=== PATIENT | female | born 1940 | race Caucasian/White ===

== ENCOUNTER 2018-03-18 11:05 | Outpatient (CLI) | payer MEDICARE, OTHER ==
[~2018-03-18] VITALS: Ht 154.9 cm; Wt 54.9 kg
[2018-03-18 11:40] VITALS: BP 124/58
[2018-03-18] MEDS ORDERED: FISH OIL 500 M1 EAC4 PO (15:19)
[2018-03-18] MEDS ORDERED: FOLIC ACID1 MG ORAL (15:19)
[2018-03-18] MEDS ORDERED: CALCIUM 600 +1 EAC2 PO (15:19)
[2018-03-18] MEDS ORDERED: ZANTAC150 MG ORAL (15:19)
[2018-03-18] MEDS ORDERED: VITAMIN D22000 UNIT PO (15:19)
[2018-03-18] MEDS ORDERED: PRESERVISION A1 EAC2 PO (15:19)
--- NOTE | 2018-03-18 16:22 | GI Initial Consult Note ---
History of Present Illness General Date patient seen: Mar 18, 2018 Time patient seen: 16:16 Reason for Consultation: ABDOMINAL PAIN Present Illness HPI 77 year old female patient that presents today with complaint of abdominal pain and constipation. Per patient, she has a history of PUD. States her last colonoscopy was performed at the age of 60. Denies any N/V/D. Denies any unintentional weight loss or changes in dietary habits. No signs of abuse or neglect. Patient is not fall risk. Home Meds Reported Medications [place] Oil/[place]-3 Fatty Acids (Fish Oil 500 mg Softgel) 1 Each Capsule, 1 EACH PO DAILY, CAP 03/18/18 Calcium Carbonate/Vitamin D3 (CALCIUM 600 + VIT D 200 TABLET) 1 Each Tablet, 1 EACH PO DAILY, TAB 03/18/18 Ergocalciferol (Vitamin D2) (VITAMIN D2) 2,000 Unit Tablet, 2000 UNIT PO DAILY, TAB 03/18/18 Ranitidine Hcl* (ZANTAC*) 150 Mg Tablet, 300 MG ORAL DAILY, #30 TAB 0 Refills 03/18/18 Folic Acid* (FOLIC ACID*) 1 Mg Tablet, 1 MG ORAL DAILY, TAB 03/18/18 Vit C/E/Zn/Coppr/Lutein/Zeaxan (Preservision Areds 2 Softgel) 1 Each Capsule, 2 EACH PO, CAP 03/18/18 Med list reviewed/reconciled: Yes Allergies: Coded Allergies: ASPIRIN (Verified Adverse Reaction, Unknown, 03/18/18) stomach upset Patient History History Provided By: Patient, Medical Record PMH Narrative Cholelithiasis PUD colonic polyps Past Surgical History: cholecystectomy Hysterectomy Rt TKR Family History Narrative Father >> gastric ulcer Aunt >> colon cA Social History: Reports: other - tea Review of Systems All Other Systems: negative except mentioned in HPI Physical Exam Vital Signs Date Time Temp Pulse Resp B/P (MAP) Pulse Ox O2 Delivery O2 Flow Rate FiO2 03/18/18 11:40 97.9 67 16 124/58 95 97.9 Sp02 EP Interpretation: reviewed, normal General Appearance: well appearing, no apparent distress, alert Head: normocephalic EENT: PERRL/EOMI, normal ENT inspection Neck: supple Respiratory: normal breath sounds, no respiratory distress Cardiovascular: normal rate Gastrointestinal: normal inspection, non tender, soft, normal bowel sounds, non -distended Rectal: deferred Genitourinary: no CVA tenderness Musculoskeletal: normal inspection, back normal Neurologic: normal inspection, alert, oriented x3, responsive Psychiatric: normal inspection, judgement/insight normal, memory normal Skin: normal inspection, normal color, no rash, warm/dry, palpation normal, well hydrated Lymphatic: normal inspection, no adenopathy GI: Plan Problems: (1) Constipation (2) Abdominal pain (3) PUD (peptic ulcer disease) (4) Colonic polyp (5) Colonoscopy planned Plan EGD/colonoscopy scheduled for 03/26/18. - CLD & (Nulytely/Suprep/Movi-Prep) prep instructions given and acknowledged by patient. - NPO @ AL day prior procedure explained. Seen with Dr. Nuñez. Thank you for this patient referral. The patient was seen and examined at bedside and all new and available data was reviewed in the patients chart. I agree with the above findings, impression and plan. (Patient seen earlier today. Signature stamp does not reflect patient encounter time.). - MD Rima ChaoBanner Casa Grande Medical CenterFranky GRINDER HAND Mar 18, 2018 16:22
== END 2018-03-18 11:40 | disposition home or self-care (01) ==
LOC: PAN 11:05
DX: R10.9 Unspecified abdominal pain (principal); K59.00 Constipation, unspecified; K27.9 Peptic ulcer, site unspecified, unspecified as acute or chronic, without hemorrhage or perforation; K63.5 Polyp of colon; Z90.49 Acquired absence of other specified parts of digestive tract; Z90.710 Acquired absence of both cervix and uterus; Z96.651 Presence of right artificial knee joint; Z88.6 Allergy status to analgesic agent
CPT/HCPCS: 99201